=== PATIENT | male | born 1960 | race Caucasian/White ===

== ENCOUNTER 2019-02-15 01:25 | Inpatient (IN) | payer SELFPAY ==
[~2019-02-15] VITALS: Ht 175.3 cm; Wt 82.1 kg
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
--- NOTE | 2019-02-15 01:56 | NUR ---
UNABLE TO GET ORAL TEMP. RECTAL TEMP 86.4. BEAR JAYGGER PLACED ON PT, WARM FLUIDS INFUSING AT THIS TIME.
[2019-02-15] MEDS ORDERED: PLEASE ENTER HEIGHT AND WEIGHT MC SCH (02:00)
[2019-02-15] MEDS ORDERED: SODIUM CHLORIDE FLUSH 10ML SYR IVF ONE (02:00)
[2019-02-15] MEDS ORDERED: PLEASE ENTER ALLERGIES MC SCH (02:00)
[2019-02-15] MEDS ORDERED: SODIUM CHLORIDE 0.9% 1,000ML IVBOLUS ONE (02:00)
--- NOTE | 2019-02-15 02:03 | NUR ---
CT DELAY, PT NEEDS TO BE WARM UP. CHECK IN 1HR.
[2019-02-15 02:18] LABS: MEAN CORPUSCULAR HEMOGLOBIN 36.9 pg (27.5-34.5); MEAN CORPUSCULAR HGB CONC 33.5 g/dL (33.2-36.2); MEAN CORPUSCULAR VOLUME 110.1 fL (81-97); MEAN PLATELET VOLUME 7.3 fL (7.4-10.4); PLATELET COUNT 295 x10^3/uL (130-400); RED BLOOD COUNT 4.29 x10^6/uL (4.38-5.82); RED CELL DISTRIBUTION WIDTH 12.6 % (9.4-14.8)
--- NOTE | 2019-02-15 02:44 | NUR ---
RT AT BEDSIDE TO APPLY WARM AIR VIA OPTI FLOW.
[2019-02-15 02:50] LABS: BASOPHILS # (AUTO) 0.01 x10^3/uL (0-0.1); BASOPHILS % (AUTO) 0 % (0-1); EOSINOPHILS # (AUTO) 0.06 x10^3/uL (0-0.4); EOSINOPHILS % (AUTO) 0 % (1-7); LYMPHOCYTES # (AUTO) 1.13 x10^3/uL (1-3.4); LYMPHOCYTES % (AUTO) 7 % (22-44); MD SCAN; MONOCYTES # (AUTO) 0.34 x10^3/uL (0.2-0.8); MONOCYTES % (AUTO) 2 % (2-9); NEUTROPHILS # (AUTO) 14.39 x10^3/uL (1.8-6.8); NEUTROPHILS % (AUTO) 90 % (42-75)
[2019-02-15 02:51] LABS: ALBUMIN 3.9 g/dL (3.4-5.0); ANION GAP 9 mmol/L (5-15); CALCIUM 8.3 mg/dL (8.5-10.1); CHLORIDE 106 mmol/L (98-107)
[2019-02-15 02:52] LABS: SALICYLATE LEVEL < 1.7 mg/dL (2.8-20.0)
[2019-02-15 02:57] LABS: ALANINE AMINOTRANSFERASE 69 U/L (12-78); ALKALINE PHOSPHATASE 101 U/L (45-117); BILIRUBIN,TOTAL 1.2 mg/dL (0.2-1.0); CREATINE KINASE, TOTAL 956 U/L (39-308); CREATININE 1.38 mg/dL (0.7-1.3); TOTAL PROTEIN 8.1 g/dL (6.4-8.2)
[2019-02-15] MEDS ORDERED: SODIUM CHLORIDE FLUSH 10ML SYR IVF PRN (03:30)
[2019-02-15] MEDS ORDERED: SODIUM CHLORIDE 0.9% 1,000 ML IV SCH ×2 (04:21→05:00)
[2019-02-15] MEDS ORDERED: PROMETHAZINE 25 MG/ML, 1ML IM PRN (04:30)
[2019-02-15] MEDS ORDERED: POLYETHYLENE GLYCOL 17 GM PACKET PO PRN (04:30)
[2019-02-15] MEDS ORDERED: ONDANSETRON ODT 4 MG PO PRN (04:30)
[2019-02-15] MEDS ORDERED: ONDANSETRON 2MG/ML, 2ML IVPush PRN (04:30)
[2019-02-15] MEDS ORDERED: hydrALAzine 20 MG/ML, 1ML IVPush PRN (04:30)
[2019-02-15] MEDS ORDERED: ACETAMINOPHEN 325 MG TABLET PO PRN (04:30)
[2019-02-15] MEDS ORDERED: DOCUSATE 100 MG CAPSULE PO PRN (04:30)
[2019-02-15] MEDS ORDERED: morphine SULFATE 10 MG/ML, 1ML IVPush PRN (04:30)
[2019-02-15] MEDS ORDERED: OXYcodone IR 5MG TABLET PO PRN (04:30)
[2019-02-15] MEDS ORDERED: BISACODYL 10 MG SUPP PR PRN (04:30)
[2019-02-15 05:27] VITALS: BP 110/70
[2019-02-15 05:28] LABS: FREE T4 (FREE THYROXINE) 1.05 ng/dL (0.76-1.46)
[2019-02-15 05:32] LABS: HEMOGLOBIN A1C 4.7 % (4.2-6.3)
[2019-02-15 05:42] LABS: AMPHETAMINE SCREEN, URINE Negative (Negative); BARBITURATE SCREEN, URINE Negative (Negative); BENZODIAZEPINE SCREEN, URINE Negative (Negative); CANNABINOID SCREEN, URINE Negative (Negative); COCAINE SCREEN, URINE Negative (Negative); METHADONE SCREEN, URINE Negative (Negative); OPIATE SCREEN, URINE Negative (Negative)
[2019-02-15] MEDS ORDERED: DIGOXIN 0.25 MG/ML, 2ML ONE (08:53)
[2019-02-15] MEDS ORDERED: DIGOXIN 0.25 MG/ML, 2ML IVPush ONE (09:00)
[2019-02-15 15:00] VITALS: BP 106/64
[2019-02-15 19:38] VITALS: BP 109/62
[2019-02-16 02:01] VITALS: BP 115/73
[2019-02-16 05:11] LABS: BASOPHILS # (AUTO) 0.01 x10^3/uL (0-0.1); BASOPHILS % (AUTO) 0 % (0-1); EOSINOPHILS # (AUTO) 0.04 x10^3/uL (0-0.4); EOSINOPHILS % (AUTO) 1 % (1-7); LYMPHOCYTES # (AUTO) 1.62 x10^3/uL (1-3.4); LYMPHOCYTES % (AUTO) 26 % (22-44); MD NO; MEAN CORPUSCULAR HEMOGLOBIN 36.5 pg (27.5-34.5); MEAN CORPUSCULAR HGB CONC 33.7 g/dL (33.2-36.2); MEAN CORPUSCULAR VOLUME 108.3 fL (81-97); MEAN PLATELET VOLUME 7.1 fL (7.4-10.4); MONOCYTES # (AUTO) 0.49 x10^3/uL (0.2-0.8); MONOCYTES % (AUTO) 8 % (2-9); NEUTROPHILS # (AUTO) 4.05 x10^3/uL (1.8-6.8); NEUTROPHILS % (AUTO) 65 % (42-75); PLATELET COUNT 190 x10^3/uL (130-400); RED CELL DISTRIBUTION WIDTH 12.8 % (9.4-14.8)
[2019-02-16 05:23] LABS: CALCIUM 7.8 mg/dL (8.5-10.1); CHLORIDE 111 mmol/L (98-107)
[2019-02-16 05:27] LABS: ALANINE AMINOTRANSFERASE 52 U/L (12-78); ALKALINE PHOSPHATASE 66 U/L (45-117); ANION GAP 5 mmol/L (5-15); BILIRUBIN,TOTAL 1.5 mg/dL (0.2-1.0); CHOL/HDL RATIO 4.1; CHOLESTEROL, TOTAL 178 mg/dL (140-239); HDL CHOL % 24 % (26-37); HDL CHOLESTEROL (DIRECT) 43 mg/dL (40-60); LDL CHOLESTEROL,CALCULATED 110 mg/dL (54-169); LDL/HDL RATIO 2.6 (0.5-3.0); TOTAL PROTEIN 6.4 g/dL (6.4-8.2); TRIGLYCERIDES 125 mg/dL (50-200); VLDL CHOLESTEROL 25 mg/dL (0-25)
[2019-02-16 06:56] VITALS: BP 133/89
[2019-02-16 12:40] VITALS: BP 129/84
[2019-02-16] MEDS: CALCIUM CARBONATE 500 MG TAB.CHEW PO SCH (21:03)
[2019-02-16 22:05] VITALS: BP 147/85
[2019-02-17 02:00] VITALS: BP 127/68
[2019-02-17 07:31] VITALS: BP 139/89
[2019-02-17 07:47] LABS: MEAN CORPUSCULAR HEMOGLOBIN 36.3 pg (27.5-34.5); MEAN CORPUSCULAR HGB CONC 33.7 g/dL (33.2-36.2); MEAN CORPUSCULAR VOLUME 107.7 fL (81-97); PLATELET COUNT 190 x10^3/uL (130-400); RED BLOOD COUNT 3.97 x10^6/uL (4.38-5.82); RED CELL DISTRIBUTION WIDTH 12.5 % (9.4-14.8)
[2019-02-17 07:58] LABS: ALBUMIN 3.3 g/dL (3.4-5.0); ANION GAP 7 mmol/L (5-15); CALCIUM 8.4 mg/dL (8.5-10.1); CHLORIDE 109 mmol/L (98-107); CREATININE 0.94 mg/dL (0.7-1.3)
[2019-02-17 08:05] LABS: BASOPHILS # (AUTO) 0.02 x10^3/uL (0-0.1); BASOPHILS % (AUTO) 0 % (0-1); EOSINOPHILS % (AUTO) 2 % (1-7); LYMPHOCYTES % (AUTO) 33 % (22-44); MD SCAN; MONOCYTES % (AUTO) 12 % (2-9); NEUTROPHILS # (AUTO) 2.19 x10^3/uL (1.8-6.8); NEUTROPHILS % (AUTO) 52 % (42-75)
[2019-02-17] MEDS: CALCIUM CARBONATE 500 MG TAB.CHEW PO SCH (08:25)
== END 2019-02-17 09:25 | disposition home or self-care (01) | DRG 923 ==
LOC: ED 02:59 → EDIP 03:04 → ED 03:34 → ICU 04:18 → 4EST 11:21 → DCLOUNGE 02-17 09:20
PROVIDERS: ADMIT Internal Medicine; ATTEND Family Medicine
DX: T68.XXXA Hypothermia, initial encounter (principal); M62.82 Rhabdomyolysis; E46 Unspecified protein-calorie malnutrition; E03.9 Hypothyroidism, unspecified; E83.51 Hypocalcemia; F17.210 Nicotine dependence, cigarettes, uncomplicated; I48.91 Unspecified atrial fibrillation; N28.9 Disorder of kidney and ureter, unspecified; S50.312A Abrasion of left elbow, initial encounter; S50.311A Abrasion of right elbow, initial encounter; S80.212A Abrasion, left knee, initial encounter; S80.211A Abrasion, right knee, initial encounter; X31.XXXA Exposure to excessive natural cold, initial encounter; Z68.26 Body mass index [BMI] 26.0-26.9, adult; W16.42XA Fall into unspecified water causing other injury, initial encounter; Y93.89 Activity, other specified; Y92.828 Other wilderness area as the place of occurrence of the external cause; Y99.8 Other external cause status
CPT/HCPCS: 36415; 70450; 71045; 80053; 80061; 80069; 80307; 82550; 83036; 83735; 84439; 84443; 84481; 85025; 87081; 93005; G0378; J1160; J7030